=== PATIENT | male | born 1970 | race Caucasian/White ===

== ENCOUNTER 2019-01-01 23:32 | Inpatient (IN) | payer OTHER ==
[~2019-01-01] VITALS: Ht 177.8 cm; Wt 79.0 kg
[2019-01-02] MEDS ORDERED: ASPIRIN 81 MG TAB PO STA (01:21)
[2019-01-02] MEDS ORDERED: FUROSEMIDE 40 MG INJ IV STA (01:21)
--- NOTE | 2019-01-02 01:27 | ERD ---
ER Documentation Chief Complaint Chief Complaint hx chf; C/O LOWER EXTREMITY EDEMA, SOB AND PALPITATIONS X'S 2 DAYS HPI 48-year-old male with a history of systolic CHF with EF of 25%, hypertension, and hyperlipidemia presenting with complaints of progressively worsening lower extremity edema, shortness of breath, and palpitations. His symptoms have been progressively worsening over the past 2 weeks, worse in the past 2 days. He denies any chest pain with exertion but he does get very short of breath with any little exertion. He is urinating normally. He is taking all of his meds as prescribed. No fevers or chills. No cough or hemoptysis. ROS All systems reviewed and are negative except as per history of present illness. Medications Home Meds Reported Medications Metoprolol Succinate* (Toprol XL*) 25 Mg Tab.sr.24h, 25 MG PO DAILY 01/02/19 Furosemide* (Furosemide*) 40 Mg Tablet, 40 MG PO DAILY 01/02/19 Hydrocodone/Acetaminophen (Hydrocodone-Acetamin 10-325 mg) 1 Each Tablet, 1 TAB PO Q8H 01/02/19 Carvedilol* (Carvedilol*) 6.25 Mg Tablet, 6.25 MG PO BID 01/02/19 Benazepril Hcl* (Benazepril Hcl*) 20 Mg Tablet, 20 MG PO BID for 30 Days, #60 01/02/19 PMhx/Soc Hx Cardiac Disorders: Yes (chf, htn, hyperlipemia ) Hx Psychiatric Problems: No Hx Miscellaneous Medical Probl: No Hx Alcohol Use: Yes Hx Substance Use: No Hx Tobacco Use: Yes Smoking Status: Current every day smoker FmHx Family History: No diabetes Physical Exam Vitals Vital Signs Date Temp Pulse Resp B/P (MAP) Pulse Ox O2 O2 Flow FiO2 Time Delivery Rate 01/02/19 93 17 129/107 95 Nasal 2.0 04:08 (114) Cannula 01/02/19 106 20 153/122 95 Nasal 03:39 (132) Cannula 01/02/19 110 20 152/135 93 Nasal 2.0 03:27 (141) Cannula 01/02/19 Nasal 00:18 Cannula 01/02/19 98.2 106 20 158/122 95 Room Air 00:08 (134) 01/01/19 89.6 120 20 162/109 95 23:36 (126) Physical Exam Const: In mild respiratory distress but able to speak in full sentences Head: Atraumatic Eyes: Normal Conjunctiva ENT: Normal External Ears, Nose and Mouth. Neck: Full range of motion. No meningismus. JVD noted Resp: Tachypneic. Bibasilar crackles to the mid lungs bilaterally. No wheezing. Cardio: Tachycardic with regular. 2+ distal pulses rhythm, no murmurs Abd: Soft, non tender, non distended. Normal bowel sounds Skin: No petechiae or rashes Back: No midline or flank tenderness Ext: No cyanosis, 2+ pitting edema up to thighs bilaterally, symmetric Neur: Awake and alert Psych: Normal Mood and Affect Result Diagram: 01/02/19 0012 01/02/19 0014 Results 24 hrs Laboratory Tests Test 01/02/19 00:12 01/02/19 00:14 White Blood Count 8.5 10^3/ul Red Blood Count 4.90 10^6/ul Hemoglobin 13.4 g/dl Hematocrit 41.7 % Mean Corpuscular Volume 85.1 fl Mean Corpuscular Hemoglobin 27.3 pg Mean Corpuscular Hemoglobin Concent 32.1 g/dl Red Cell Distribution Width 16.2 % Platelet Count 207 10^3/UL Mean Platelet Volume 11.2 fl Immature Granulocytes % 0.400 % Neutrophils % 66.4 % Lymphocytes % 24.7 % Monocytes % 6.8 % Eosinophils % 1.2 % Basophils % 0.5 % Nucleated Red Blood Cells % 0.0 /100WBC Immature Granulocytes # 0.030 10^3/ul Neutrophils # 5.6 10^3/ul Lymphocytes # 2.1 10^3/ul Monocytes # 0.6 10^3/ul Eosinophils # 0.1 10^3/ul Basophils # 0.0 10^3/ul Nucleated Red Blood Cells # 0.0 10^3/ul Sodium Level 140 mmol/L Potassium Level 3.7 mmol/L Chloride Level 102 mmol/L Carbon Dioxide Level 25 mmol/L Anion Gap 13 Blood Urea Nitrogen 31 mg/dl Creatinine 1.89 mg/dl Est Glomerular Filtrat Rate mL/min 38 mL/min Glucose Level 194 mg/dl Calcium Level 9.3 mg/dl Total Bilirubin 1.1 mg/dl Direct Bilirubin 0.00 mg/dl Indirect Bilirubin 1.1 mg/dl Aspartate Amino Transf (AST/SGOT) 39 IU/L Alanine Aminotransferase (ALT/SGPT) 47 IU/L Alkaline Phosphatase 164 IU/L Troponin I 0.149 ng/ml B-Type Natriuretic Peptide 12981 PG/ML Total Protein 6.4 g/dl Albumin 3.7 g/dl Globulin 2.70 g/dl Albumin/Globulin Ratio 1.37 Current Medications Medications Dose Sig/Marisel Start Time Status Last (Trade) Ordered Route PRN Stop Time Admin Dose Reason Admin Aspirin 162 mg ONCE STAT 01/02/19 DC 01/02/19 (Aspirin) PO 01:21 01:35 01/02/19 01:23 Furosemide 40 mg ONCE STAT 01/02/19 DC 01/02/19 (Lasix) IV 01:21 01:35 01/02/19 01:23 Ondansetron 4 mg ER BRIDGE 01/02/19 HCl (Zofran PRN IV 03:30 Inj) NAUSEA/VOMITI 01/03/19 03:29 NG 650 mg ER BRIDGE 01/02/19 Acetaminophen PRN PO 03:30 (Tylenol .MILD PAIN 01/03/19 03:29 Tab) 1-3 OR TEMP Labetalol 10 mg ONCE ONCE 01/02/19 DC 01/02/19 HCl IV 04:00 03:44 (Labetalol) 01/02/19 04:01 1 tab ONCE ONCE 01/02/19 DC 01/02/19 Nitroglycerin SL 04:00 03:43 01/02/19 04:01 (Nitroglyceri n (Sl Tab) 0.4 Mg) Procedures/MDM EMERGENT LABS AND DIAGNOSTIC STUDIES: Lab Results above were reviewed and interpreted by me. CBC: no anemia or evidence of infection BMP: Elevated BUN and creatinine, consistent with renal insufficiency. No e/o clinically significant electrolyte abnormality severe acidosis, alkalosis, diabetic ketoacidosis Troponin elevated, concerning for myocardial ischemia BNP significantly elevated, likely due to heart failure exacerbation 12-lead EKG #1 was interpreted by Anabel Childers MD: Sinus tachycardia at 105 bpm with premature supraventricular complexes Right axis deviation Incomplete right bundle branch block Inferior ST depressions, concerning for ischemia. No STEMI. 12-lead EKG #2 was interpreted by Anabel Childesr MD: Sinus tachycardia at 109 bpm Right axis deviation Incomplete right bundle branch block Inferior ST depressions, concerning for ischemia. No STEMI. Radiology Results as interpreted by Radiology below were reviewed by Bienvenido Childers MD: Chest x-ray: Consistent with fluid overload Initial Nursing notes reviewed. Previous Medical Records requested via the Electronic Health Record. EMERGENCY DEPARTMENT COURSE / MEDICAL DECISION MAKING: Patient's heart failure symptoms are concerning for acute decompensation and will require inpatient workup and monitoring. Troponin was elevated, concerning for non-ST elevation OR. Aspirin was given. Lasix 40 mg IV given. Further w/u for ischemia, arrhythmia, PE or dissection will be deferred to the inpatient team. Critical Care Time: 40 minutes Treatments/Evaluations: Close monitoring and treatment of unstable vital signs, cardiorespiratory, and neurologic status, while maintaining tight balance of fluid, respiratory, and cardiac interventions. This time includes discussing the case with the patient and the patients family. This time does not include all procedures stated elsewhere in this record. This time also includes reviewing old records, labs and radiological studies. This time includes examining and re-examining the patient. Additionally, this time also includes arranging care with admitting and consulting physicians. Accepting Care Team: Current data and ongoing care discussed. Time: Time of admission Primary Provider: Dr. Alexandra with [facility] Diagnosis: Primary Impression: Acute exacerbation of CHF (congestive heart failure) Heart failure type: systolic Qualified Codes: I50.23 - Acute on chronic systolic (congestive) heart failure Additional Impressions: Non-STEMI (non-ST elevated myocardial infarction) Renal insufficiency Condition: Serious JETHRO CHILDERS MD Jan 02, 2019 01:27
[2019-01-02] MEDS ORDERED: CARV6.2579 PO (02:15)
[2019-01-02] MEDS ORDERED: METO-335 PO (02:15)
[2019-01-02] MEDS ORDERED: FURO40TA4 PO (02:15)
[2019-01-02] MEDS ORDERED: HYDR-3609 PO (02:15)
[2019-01-02] MEDS ORDERED: BENA20TA4 PO (02:15)
[2019-01-02] MEDS ORDERED: ONDANSETRON 4 MG INJ IV PRN (03:30)
[2019-01-02] MEDS ORDERED: ACETAMINOPHEN 325 MG TAB PO PRN (03:30)
[2019-01-02] MEDS ORDERED: LABETALOL HCL 20MG INJ IV ONE (04:00)
[2019-01-02] MEDS ORDERED: NITROGLYCERIN (SL) 0.4 MG TAB SL ONE (04:00)
[2019-01-02] MEDS ORDERED: ALPRAZOLAM 0.25 MG TAB PO PRN (09:00)
[2019-01-02] MEDS ORDERED: FUROSEMIDE 40 MG INJ IV ONE (09:00)
[2019-01-02] MEDS: FUROSEMIDE 40 MG INJ IV SCH ×2 (09:35→17:36)
[2019-01-02] MEDS ORDERED: ALBUTEROL 0.083% (NEB) 2.5 MG/3 ML AMP HHN STA (11:26)
[2019-01-02] MEDS ORDERED: BUMETANIDE 1 MG INJ IV SCH (12:00)
--- NOTE | 2019-01-02 13:27 | CONS ---
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 Unclear if medication compliance. He is currently on BiPAP and feeling better -Patient has been placed on a Bumex drip, continue as his renal function blood pressure permits -BiPAP and oxygen supplementation as needed -Troponins minimally elevated and trending down, continue aspirin therapy, statin therapy. Restart beta-stephanie. Nitro ointment and hydralazine -Check urine drug screen Consultation Date/Type/Reason Admit Date/Time Type of Consult Cardiology Reason for Consultation Shortness of breath and leg swelling Date/Time of Note DATE: 01/02/19 TIME: 13:21 Hx of Present Illness This is a 48-year-old male with past medical history of congestive heart failure who presents with progressive worsening shortness of breath, lower extremity swelling and fatigue over the past 2-3 weeks. Shortness of breath is with exertion as well as with lying down. Denies any chest pain. Does complain of lower extremity swelling for the past 2-3 weeks. Denies any fevers or chills. Does have a cough which is nonproductive. He tells me he does not see a doctor regularly but does take his medications. He does admit to methamphetamine and cocaine use but he thinks last time was 6 months ago. 12 point review of systems was performed with all pertinent positives and negatives mentioned above and all else is negative Past Medical History Medical History: congestive heart failure Home Meds Reported Medications Metoprolol Succinate* (Toprol XL*) 25 Mg Tab.sr.24h, 25 MG PO DAILY 01/02/19 Furosemide* (Furosemide*) 40 Mg Tablet, 40 MG PO DAILY 01/02/19 Hydrocodone/Acetaminophen (Hydrocodone-Acetamin 10-325 mg) 1 Each Tablet, 1 TAB PO Q8H 01/02/19 Carvedilol* (Carvedilol*) 6.25 Mg Tablet, 6.25 MG PO BID 01/02/19 Benazepril Hcl* (Benazepril Hcl*) 20 Mg Tablet, 20 MG PO BID for 30 Days, #60 01/02/19 Medications Current Medications Ondansetron HCl (Zofran Inj) 4 mg ER BRIDGE PRN IV NAUSEA/VOMITING; Start 01/02/19 at 03:30; Stop 01/03/19 at 03:29 Acetaminophen (Tylenol Tab) 650 mg ER BRIDGE PRN PO .MILD PAIN 1-3 OR TEMP; Start 01/02/19 at 03:30; Stop 01/03/19 at 03:29 Alprazolam (Xanax) 0.5 mg Q8H PRN PO anxiety Last administered on 01/02/19at 09:29; Admin Dose 0.5 MG; Start 01/02/19 at 09:00 Furosemide (Lasix) 40 mg BID DIURETICS IV Last administered on 01/02/19at 09:35; Admin Dose 40 MG; Start 01/02/19 at 09:30 Bumetanide 6 mg/ Dextrose 60 ml @ 10 mls/hr Q6H ONCE IVPB ; Start 01/02/19 at 14:00; Stop 01/02/19 at 19:59 Allergies: Coded Allergies: No Known Allergy (Unverified , 01/02/19) Past Surgical History Past Surgical Hx: other (Back surgery) Social History Alcohol Use: other (History of) Smoking Status: Current every day smoker Drug Use: other (Methamphetamine and cocaine use, patient claims approximately 6 months ago was last time) Exam/Review of Systems Vital Signs Vitals Vital Signs Date Temp Pulse Resp B/P (MAP) Pulse Ox O2 O2 Flow FiO2 Time Delivery Rate 01/02/19 103 100 30 11:35 01/02/19 22 141/115 Nasal 2.0 09:46 (124) Cannula 01/02/19 98.2 00:08 Intake and Output 01/01/19 01/01/19 01/02/19 1515:00 23:00 07:00 IntakeIntake Total 80 ml OutputOutput Total 1210 ml BalanceBalance -1130 ml Exam Constitutional: alert (Tired, on BiPAP, able to answer questions) Head: normocephalic Respiratory: other (Coarse breath sounds bilaterally, scattered crackles) Cardiovascular: regular rate and rhythm, systolic murmur (S1-S2 heard) Gastrointestinal: soft, non-tender, bowel sounds Extremities: edema Labs Result Diagram: 01/02/1990101/02/19901 Results 24hrs Laboratory Tests Test 01/02/19 00:12 01/02/19 00:14 01/02/19 09:02 White Blood Count 8.5 8.6 Red Blood Count 4.90 4.90 Hemoglobin 13.4 L 13.3 L Hematocrit 41.7 L 42.3 Mean Corpuscular Volume 85.1 86.3 Mean Corpuscular Hemoglobin 27.3 L 27.1 L Mean Corpuscular Hemoglobin Concent 32.1 31.4 L Red Cell Distribution Width 16.2 H 16.4 H Platelet Count 207 197 Mean Platelet Volume 11.2 H 11.2 H Immature Granulocytes % 0.400 0.500 H Neutrophils % 66.4 53.9 Lymphocytes % 24.7 34.1 Monocytes % 6.8 8.6 Eosinophils % 1.2 2.2 Basophils % 0.5 0.7 Nucleated Red Blood Cells % 0.0 0.0 Immature Granulocytes # 0.030 0.040 H Neutrophils # 5.6 4.6 Lymphocytes # 2.1 2.9 Monocytes # 0.6 0.7 Eosinophils # 0.1 0.2 Basophils # 0.0 0.1 Nucleated Red Blood Cells # 0.0 0.0 Sodium Level 140 142 Potassium Level 3.7 3.7 Chloride Level 102 103 Carbon Dioxide Level 25 27 Anion Gap 13 12 Blood Urea Nitrogen 31 H 30 H Creatinine 1.89 H 1.84 H Est Glomerular Filtrat Rate mL/min 38 L 39 L Glucose Level 194 98 # Calcium Level 9.3 9.3 Total Bilirubin 1.1 Direct Bilirubin 0.00 Indirect Bilirubin 1.1 Aspartate Amino Transf (AST/SGOT) 39 Alanine Aminotransferase (ALT/SGPT) 47 Alkaline Phosphatase 164 H Troponin I 0.149 *H 0.143 *H B-Type Natriuretic Peptide 86002 H Total Protein 6.4 Albumin 3.7 Globulin 2.70 Albumin/Globulin Ratio 1.37 Imaging Imaging ECG sinus tachycardia, QRS 140 ms with incomplete right bundle branch block, nonspecific ST abnormalities Medications Medications Current Medications Ondansetron HCl (Zofran Inj) 4 mg ER BRIDGE PRN IV NAUSEA/VOMITING; Start 01/02/19 at 03:30; Stop 01/03/19 at 03:29 Acetaminophen (Tylenol Tab) 650 mg ER BRIDGE PRN PO .MILD PAIN 1-3 OR TEMP; Start 01/02/19 at 03:30; Stop 4/13/19 at 03:29 Alprazolam (Xanax) 0.5 mg Q8H PRN PO anxiety Last administered on 01/02/19at 09:29; Admin Dose 0.5 MG; Start 01/02/19 at 09:00 Furosemide (Lasix) 40 mg BID DIURETICS IV Last administered on 01/02/19at 09:35; Admin Dose 40 MG; Start 01/02/19 at 09:30 Bumetanide 6 mg/ Dextrose 60 ml @ 10 mls/hr Q6H ONCE IVPB ; Start 01/02/19 at 14:00; Stop 01/02/19 at 19:59 Donald Gonzales DO Jan 02, 2019 13:27
[2019-01-02] MEDS ORDERED: BUMETANIDE IVPB ONE (14:00)
[2019-01-02] MEDS ORDERED: DEXTROSE 5% IVPB ONE (14:00)
--- NOTE | 2019-01-02 14:41 | HP ---
DATE OF ADMISSION: 01/01/2019 CHIEF COMPLAINT: Shortness of breath. HISTORY OF PRESENT ILLNESS: A 48-year-old male with history of systolic congestive heart failure and baseline ejection fraction of 25% as well as hypertension and hyperlipidemia, presented to emergency room with complaints of shortness of breath and dyspnea on exertion. His symptoms have progressivel y getting worse. He denies any chest pain. No nausea, vomiting or diaphoresis. The patient was rod gnosed with CHF in 2013. He has a history of cocaine and methamphetamine abuse. Initial evaluation revealed evidence of congestive heart failure exacerbation. Chest x-ray showed pu lmonary edema. BNP was elevated to 22,000. MEDICATIONS PRIOR TO ADMISSION: 1. Metoprolol. 2. Lasix. 3. Coreg. 4. Benazepril. 5. [place]. SOCIAL HISTORY: The patient denies any illicit drug use at this time. PHYSICAL EXAMINATION: GENERAL: Well-developed, well-nourished male who is in mild respiratory distress. VITAL SIGNS: Stable. He is afebrile. HEENT: Extraocular muscles are intact. Pupils are equal and reactive to light bilaterally. Sclerae are anicteric. Oropharynx is clear and moist. NECK: Supple. No JVD, no carotid bruits. LUNGS: Crackles at the bases. CARDIAC: Regular rate and rhythm. No murmurs, rubs or gallops. ABDOMEN: Soft, nontender, nondistended, normoactive bowel sounds. EXTREMITIES: A 3+ pitting edema. NEUROLOGICAL: Nonfocal. LABORATORY DATA: BUN of 30, creatinine of 1.84. CBC is within normal limits. ASSESSMENT: 1. A 48-year-old male presenting with acute systolic congestive heart failure exacerbation. 2. History of cardiomyopathy with EF of 25%. 3. Hypertension. 4. Hyperlipidemia. 5. History of illicit drug abuse. 6. Stage III chronic kidney disease. PLAN: 1. Place in tele observation. 2. IV Bumex drip. 3. Cardiology consultation. 4. Resume home medications. Dictated By: CYRUS WILLMAS/CYNTHIA Conf#: [id number] DID#: [id number] CC: JETHRO HOOPER MD;*EndCC*
[2019-01-02] MEDS: NITROGLYCERIN 2% 1 GM OINT PKT TD SCH ×2 (15:06→21:15)
[2019-01-02 17:32] VITALS: Ht 177.8 cm; Wt 79.0 kg
[2019-01-02 17:41] VITALS: PULSE 109
[2019-01-02 18:24] VITALS: BP 182/101; PULSE 78; RESP 20
[2019-01-02 20:00] VITALS: BP 157/105; PULSE 108; PULSE 99; RESP 20
[2019-01-02] MEDS: ATORVASTATIN 20 MG TAB PO SCH (21:15)
[2019-01-02 21:34] VITALS: PULSE 80
[2019-01-02] MEDS ORDERED: BUMETANIDE 6 MG in DEXTROSE 5% 36 ML IV ONE (22:30)
[2019-01-02 23:55] VITALS: BP 155/103; PULSE 98; RESP 20
[2019-01-03] VITALS (11 sets, daily range): BP systolic 128–148; BP diastolic 98–116; PULSE 50–105; RESP 19–20
[2019-01-03] MEDS: NITROGLYCERIN 2% 1 GM OINT PKT TD SCH (06:27)
[2019-01-03] MEDS: HYDROCODONE/APAP (5/325) TAB PO PRN ×2 (06:27→18:08)
[2019-01-03] MEDS: FUROSEMIDE 40 MG INJ IV SCH (07:24)
[2019-01-03] MEDS: ASPIRIN 81 MG TAB PO SCH (08:18)
--- NOTE | 2019-01-03 09:13 | CONS ---
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 Unclear if medication compliance. He is currently on BiPAP and feeling better -Patient is s/p Bumex drip, now on iv lasix -BiPAP and oxygen supplementation as needed -Troponins minimally elevated and trending down, continue aspirin therapy, statin therapy. Restart beta-stephanie. Nitro ointment and hydralazine - trops + due to CHF exacerbation/CM Consultation Date/Type/Reason Admit Date/Time Jan 02, 2019 at 03:13 Initial Consult Date Type of Consult Cardiology Date/Time of Note DATE: 01/03/19 TIME: 09:11 24 HR Interval Summary Free Text/Dictation The patient imporiving Exam/Review of Systems Vital Signs Vitals Vital Signs Date Temp Pulse Resp B/P (MAP) Pulse Ox O2 O2 Flow FiO2 Time Delivery Rate 01/03/19 102 08:04 01/03/19 98.1 20 135/101 97 07:40 (112) 01/03/19 2.0 03:03 01/02/19 30 21:34 01/02/19 Nasal 21:00 Cannula Intake and Output 01/02/19 01/02/19 01/03/19 1515:00 23:00 07:00 IntakeIntake Total 60 ml 660 ml OutputOutput Total 4600 ml BalanceBalance 60 ml -3940 ml Labs Result Diagram: 01/03/19 0553 01/03/19 0553 Results 24hrs Laboratory Tests Test 01/03/19 05:53 White Blood Count 9.0 Red Blood Count 5.51 Hemoglobin 14.7 Hematocrit 46.3 Mean Corpuscular Volume 84.0 Mean Corpuscular Hemoglobin 26.7 L Mean Corpuscular Hemoglobin Concent 31.7 L Red Cell Distribution Width 16.1 H Platelet Count 223 Mean Platelet Volume 11.4 H Immature Granulocytes % 0.300 Neutrophils % 52.1 Lymphocytes % 34.0 Monocytes % 9.9 Eosinophils % 2.9 Basophils % 0.8 Nucleated Red Blood Cells % 0.0 Immature Granulocytes # 0.030 Neutrophils # 4.7 Lymphocytes # 3.1 H Monocytes # 0.9 Eosinophils # 0.3 Basophils # 0.1 Nucleated Red Blood Cells # 0.0 Sodium Level 142 Potassium Level 3.5 Chloride Level 97 Carbon Dioxide Level 35 H Anion Gap 10 Blood Urea Nitrogen 38 H Creatinine 1.82 H Est Glomerular Filtrat Rate mL/min 40 L Glucose Level 94 Calcium Level 9.7 Magnesium Level 1.8 Triglycerides Level 82 Cholesterol Level 119 LDL Cholesterol, Calculated 44 HDL Cholesterol 59 Cholesterol/HDL Ratio 2.0 Medications Medications Current Medications Alprazolam (Xanax) 0.5 mg Q8H PRN PO anxiety Last administered on 01/02/19 09:29; Admin Dose 0.5 MG; Start 01/02/19 at 09:00 Furosemide (Lasix) 40 mg BID DIURETICS IV Last administered on 01/03/19 0 7:24; Admin Dose 40 MG; Start 01/02/19 at 09:30 Aspirin (Aspirin) 81 mg DAILY PO Last administered on 01/03/19 08:18; Admin Dose 81 MG; Start 01/03/19 at 09:00 Nitroglycerin (Nitroglycerin 2% Oint) 0.5 inch Q8 TD Last administered on 01/03/19 06:27; Admin Dose 0.5 INCH; Start 01/02/19 at 14:00; Stop 01/03/19 at 13:59 Carvedilol (Coreg) 3.125 mg BID PO ; Start 01/02/19 at 21:00 Hydralazine HCl (Apresoline) 10 mg BID PO Last administered on 01/03/19 08:18; Admin Dose 10 MG; Start 01/02/19 at 21:00 Atorvastatin Calcium (Lipitor) 20 mg HS PO Last administered on 01/02/19at 21:15; Admin Dose 20 MG; Start 01/02/19 at 21:00 Acetaminophen/ Hydrocodone Bitart ([place] (5/325)) 1 tab Q4H PRN PO MODERATE PAIN LEVEL 4-6 Last administered on 01/03/19 06:27; Admin Dose 1 TAB; Start 01/03/19 at 06:00 TED ESTRELLA MD Jan 03, 2019 09:13
--- NOTE | 2019-01-03 10:50 | PN ---
Date/Time of Note Date/Time of Note DATE: 01/03/19 TIME: 10:48 Subjective Feels better. No shortness of breath. No chest pain. Objective Vitals Vital Signs Date Temp Pulse Resp B/P (MAP) Pulse Ox O2 O2 Flow FiO2 Time Delivery Rate 01/03/19 102 08:04 01/03/19 98.1 20 135/101 97 07:40 (112) 01/03/19 2.0 03:03 01/02/19 30 21:34 01/02/19 Nasal 21:00 Cannula Intake and Output 01/02/19 01/02/19 01/03/19 1515:00 23:00 07:00 IntakeIntake Total 60 ml 660 ml OutputOutput Total 4600 ml BalanceBalance 60 ml -3940 ml Neck supple Lungs with bibasilar crackles Cardiac regular rate and rhythm Abdomen soft nontender nondistended normoactive bowel sounds 3+ pitting edema Nonfocal Results Result Diagram: 01/03/19 0553 01/03/19 0553 Medications Medications Current Medications Alprazolam (Xanax) 0.5 mg Q8H PRN PO anxiety Last administered on 01/02/19at 09: 29; Admin Dose 0.5 MG; Start 01/02/19 at 09:00 Furosemide (Lasix) 40 mg BID DIURETICS IV Last administered on 01/03/19at 07:24; Admin Dose 40 MG; Start 01/02/19 at 09:30 Aspirin (Aspirin) 81 mg DAILY PO Last administered on 01/03/19at 08:18; Admin Dose 81 MG; Start 01/03/19 at 09:00 Nitroglycerin (Nitroglycerin 2% Oint) 0.5 inch Q8 TD Last administered on 01/03/19at 06:27; Admin Dose 0.5 INCH; Start 01/02/19 at 14:00; Stop 01/03/19 at 13:59 Carvedilol (Coreg) 3.125 mg BID PO ; Start 01/02/19 at 21:00 Hydralazine HCl (Apresoline) 10 mg BID PO Last administered on 01/03/19at 08:18; Admin Dose 10 MG; Start 01/02/19 at 21:00 Atorvastatin Calcium (Lipitor) 20 mg HS PO Last administered on 01/02/19at 21:15; Admin Dose 20 MG; Start 01/02/19 at 21:00 Acetaminophen/ Hydrocodone Bitart ([place] (5/325)) 1 tab Q4H PRN PO MODERATE PAIN LEVEL 4-6 Last administered on 01/03/19at 06:27; Admin Dose 1 TAB; Start 01/03/19 at 06:00 Bumetanide 6 mg/ Dextrose 60 ml @ 10 mls/hr Q6H ONCE IV ; Start 01/03/19 at 11:00; Stop 01/03/19 at 16:59 VTE Prophylaxis Risk score (from Ns)>0 risk: 1 SCD applied (from Nsg): No SCD contraindication: low risk/ambulating Lines/Catheters IV Catheter Type: Saline Lock Rosenthal in Place: No Assessment/Plan Assessment/Plan Acute systolic CHF exacerbation Severe cardiomyopathy History of polysubstance abuse Stage III chronic kidney disease Resume Bumex drip Monitor renal function Cardiology follow-up CYRUS RICE MD Jan 03, 2019 10:50
[2019-01-03] MEDS ORDERED: BUMETANIDE 6 MG in DEXTROSE 5% 36 ML IV ONE (11:00)
[2019-01-03] MEDS: ATORVASTATIN 20 MG TAB PO SCH (20:45)
[2019-01-04] VITALS (8 sets, daily range): BP systolic 141–160; BP diastolic 103–112; PULSE 54–113; RESP 18–20
[2019-01-04] MEDS: ASPIRIN 81 MG TAB PO SCH (08:06)
[2019-01-04] MEDS ORDERED: POTASSIUM CHLORIDE (SR) 20 MEQ TAB PO SCH (10:00)
[2019-01-04] MEDS ORDERED: BUME1TAB PO (10:26)
[2019-01-04] MEDS ORDERED: POTA10TA37 PO (10:26)
[2019-01-04] MEDS ORDERED: METOPROLOL (XL) 25 MG TAB PO SCH (10:30)
[2019-01-04] MEDS ORDERED: LISINOPRIL 10 MG TAB PO SCH (10:30)
--- NOTE | 2019-01-04 10:30 | PDOCDIS ---
Discharge Instructions CONDITION [id number] Patient Condition: [id number] Good HOME CARE INSTRUCTIONS: [id number] Diet Instructions: Fvarp5e day ACTIVITY: [id number] Activity Restrictions: [id number] No Restrictions FOLLOW UP/APPOINTMENTS Follow-up Plan pcp [address] Gonzales 1 week CYRUS RICE MD Jan 04, 2019 10:30
--- NOTE | 2019-01-04 10:47 | DS ---
DATE OF ADMISSION: 01/02/2019 DATE OF DISCHARGE: 01/04/2019 DISCHARGE DIAGNOSES: 1. A 48-year-old male with acute systolic congestive heart failure exacerbation. 2. Severe cardiomyopathy with baseline ejection fraction of 25%. 3. Stage III chronic kidney disease. 4. History of polysubstance abuse. HOSPITAL COURSE: I saw 48-year-old male with known history of severe cardiomyopathy and chronic jody estive heart failure, presented to emergency room with complaint of shortness of breath, dyspnea on e xertion, bilateral lower extremity edema. The patient was diagnosed with acute congestive heart fail ure exacerbation. He was seen in consultation by Dr. Gonzales. The patient received IV Bumex drip for 3 days. His shortness of breath was resolved. About 10 liters of fluid was removed. The patient i s in stable condition for discharge. He was switched from Lasix to Bumex. I asked him to adhere to a low sodium diet and fluid restriction of 1200 mL daily. MEDICATIONS ON DISCHARGE: 1. Bumex 1 mg p.o. b.i.d. 2. K-Dur 10 mEq p.o. daily. 3. Benazepril 20 mg b.i.d. 4. Toprol-XL 25 mg daily. PLAN: 1. Follow-up with PCP in 1 week. 2. Follow up with saw a salesperson stereo equipment, Dr. Gonzales, in 1 week. Dictated By: CYRUS WILLAMS/NTS Conf#: [id number] DID#: [id number] CC: KATHARINA MALDONADO MD;*End*
--- NOTE | 2019-01-04 10:56 | CONS ---
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 Unclear if medication compliance. He is currently feeling better after several days of Bumex - start LIDYA-I replace potassium -pt refusing coreg replace with toprol xl consider outpatient entresto Exam/Review of Systems Vital Signs Vitals Vital Signs Date Temp Pulse Resp B/P (MAP) Pulse Ox O2 O2 Flow FiO2 Time Delivery Rate 01/04/19 89 08:05 01/04/19 Nasal 2.0 07:40 Cannula 01/04/19 97.4 20 160/106 94 07:22 (124) 01/04/19 27 02:05 Intake and Output 01/03/19 01/03/19 01/04/19 1414:59 22:59 06:59 IntakeIntake Total 1300 ml 900 ml OutputOutput Total 4000 ml 500 ml BalanceBalance -2700 ml 400 ml Exam Constitutional: alert, oriented Respiratory: clear to auscultation Cardiovascular: regular rate and rhythm Extremities: No edema Labs Result Diagram: 01/03/19 0553 01/04/19 0646 Results 24hrs Laboratory Tests Test 01/04/19 06:46 Sodium Level 140 Potassium Level 3.0 L Chloride Level 96 L Carbon Dioxide Level 32 H Anion Gap 12 Blood Urea Nitrogen 37 H Creatinine 1.53 H Est Glomerular Filtrat Rate mL/min 49 L Glucose Level 92 Calcium Level 9.2 Medications Medications Current Medications Alprazolam (Xanax) 0.5 mg Q8H PRN PO anxiety Last administered on 01/02/19at 09:29; Admin Dose 0.5 MG; Start 01/02/19 at 09:00 Aspirin (Aspirin) 81 mg DAILY PO Last administered on 01/04/19at 08:06; Admin Dose 81 MG; Start 01/03/19 at 09:00 Hydralazine HCl (Apresoline) 10 mg BID PO Last administered on 01/04/19at 08:06; Admin Dose 10 MG; Start 01/02/19 at 21:00 Atorvastatin Calcium (Lipitor) 20 mg HS PO Last administered on 01/03/19at 20:45; Admin Dose 20 MG; Start 01/02/19 at 21:00 Acetaminophen/ Hydrocodone Bitart ([place] (5/325)) 1 tab Q4H PRN PO MODERATE PAIN LEVEL 4-6 Last administered on 01/03/19at 18:08; Admin Dose 1 TAB; Start 01/03/19 at 06:00 Bumetanide 12 mg/ Dextrose/Water 120 ml @ 10 mls/hr Q12H ONCE IV ; Start 01/04/19 at 11:00; Stop 01/04/19 at 22:59 Potassium Chloride (Klor-Con 20) 40 meq BID PO Last administered on 01/04/19at 10:13; Admin Dose 40 MEQ; Start 01/04/19 at 10:00; Stop 01/04/19 at 21:01 Lisinopril (Zestril) 10 mg DAILY PO ; Start 01/04/19 at 10:30 Metoprolol Succinate (Toprol Xl) 25 mg DAILY PO ; Start 01/04/19 at 10:30 TYLER GRANADO MD Jan 04, 2019 10:56
[2019-01-04] MEDS ORDERED: BUMETANIDE 12 MG in DEXTROSE 5% 72 ML IV ONE (11:00)
--- NOTE | 2019-01-05 09:25 | RADRPT ---
Echocardiogram Report Patient Name: DONALD ALBERTOPatient ID: [id number] : 1970 (48y 8m)Study Date: 01/02/2019 8:58:21 AM Gender: MAccession #: [id number] Tech: Robert Gerber RDCS Location: [facility] Ref.Physician: KATHARINA MALDONADO Height(Cm): BSA: Weight(Kg): Quality: AdequateAccount #: Procedures: Echocardiographic Report: Transthoracic echocardiogram with complete 2D, M-Mode, and doppler examination. Indications: Congestive Heart Failure. Measurements: 2D/M Mode Doppler Measurement Value Normal Range Measurement Value Normal Range LVIDd 2D 6.8 [ 4.2 - 5.8 ] cm AV Peak Gaetano 0.8 [ 100.0 - 170.0 ] cm/sec LVIDs 2D 6.6 [ 2.5 - 4.0 ] cm AV Peak PG 2.0 [ 2.0 - 9.0 ] mmHg LVPWd 2D 1.2 [ 0.6 - 1.0 ] cm LVOT Peak Gaetano 0.4 [ 70.0 - 110.0 ] cm/sec IVSd 2D 1.1 [ 0.6 - 1.0 ] cm LVOT Peak PG 1.0 [ 2.0 - 6.0 ] mmHg AoR Diam 2D 3.9 [ 2.6 - 3.4 ] cm Lat E` Gaetano 0.0 [ 10.0 - 15.0 ] cm/sec EDV 2D 237.0 [ 62.0 - 150.0 ] ml TR Peak Gaetano 3.4 [ 100.0 - 280.0 ] cm/sec ESV 2D 226.0 [ 21.0 - 61.0 ] ml TR Peak PG 46.0 mmHg EF 2D 4.6 [ 52.0 - 72.0 ] percent RVSP 61.0 [ 10.0 - 36.0 ] mmHg LA Dimen 2D 5.1 [ 3.0 - 4.0 ] cm RA Pressure 15.0 mmHg Findings: Left Ventricle: Mild concentric left ventricular hypertrophy. Moderate enlargement of left ventricle cavity. Severe global left ventricular systolic dysfunction. Ejection fraction is visually estimated at 20 %. Tissue Doppler/Mitral Doppler indices are consistent with restrictive physiology with markedly elevated left atrial pressure (Stage III-IV diastolic dysfunction). Right Ventricle: Normal right ventricular size. Mild right ventricular hypokinesis. Left Atrium: There is moderate enlargement of left atrium. Right Atrium: There is severe enlargement of right atrium. Mitral Valve: Mitral valve leaflets appear mildly thickened. Mild mitral annular calcification. Mild to moderate mitral valve regurgitation. Aortic Valve: No significant aortic stenosis or insufficiency. Aortic cusps appear moderately calcified. Tricuspid Valve: Normal appearance of the tricuspid valve. Estimated peak PA systolic pressure 61 mmHg. There is mild to moderate tricuspid regurgitation. Pulmonic Valve: Pulmonic valve not well visualized. There is trace pulmonic regurgitation. Pericardium: Normal pericardium with no significant pericardial effusion. Aorta: Normal aortic root. IVC: Dilated IVC without respiratory collapse consistent with elevated right atrial pressure. Conclusions: Mild concentric left ventricular hypertrophy. Moderate enlargement of left ventricle cavity. Severe global left ventricular systolic dysfunction. Ejection fraction is visually estimated at 20 %. Tissue Doppler/Mitral Doppler indices are consistent with restrictive physiology with markedly elevated left atrial pressure (Stage III-IV diastolic dysfunction). Normal right ventricular size. Mild right ventricular hypokinesis. There is moderate enlargement of left atrium. There is severe enlargement of right atrium. Mild to moderate mitral valve regurgitation. No significant aortic stenosis or insufficiency. Estimated peak PA systolic pressure 61 mmHg. There is mild to moderate tricuspid regurgitation. Normal pericardium with no significant pericardial effusion. Electronically Signed By: Donald Gonzales 2019-01-02 13:17:21 PDT
== END 2019-01-04 18:51 | disposition home or self-care (01) | DRG 293 ==
LOC: E/R 23:32 → TEL 01-02 03:13
PROVIDERS: ADMIT Internal Medicine; ATTEND Internal Medicine
DX: I11.0 Hypertensive heart disease with heart failure (principal); I42.9 Cardiomyopathy, unspecified; I13.0 Hypertensive heart and chronic kidney disease with heart failure and stage 1 through stage 4 chronic kidney disease, or unspecified chronic kidney disease; N18.3 Chronic kidney disease, stage 3 (moderate); F15.90 Other stimulant use, unspecified, uncomplicated; F14.90 Cocaine use, unspecified, uncomplicated
CPT/HCPCS: 36415; 71045; 80048; 80053; 80061; 80307; 83735; 83880; 84484; 85025; 93005; 93306; 94660; 94664; 96374; J1940

== ENCOUNTER 2019-02-01 23:47 | Inpatient (IN) | payer OTHER ==
[~2019-02-01] VITALS: Ht 177.8 cm; Wt 85.5 kg
[~2019-02-01 23:47] MED LIST: BENA20TA4 PO; BUME1TAB PO; METO-335 PO; POTA10TA37 PO
[2019-02-02] VITALS (10 sets, daily range): BP systolic 109–149; BP diastolic 81–109; PULSE 82–100; RESP 20; Ht 177.8 cm; Wt 85.5 kg
[2019-02-02] MEDS ORDERED: ASPIRIN 325 MG TAB PO ONE (03:00)
[2019-02-02] MEDS ORDERED: BUMETANIDE 1 MG INJ IV ONE (03:00)
[2019-02-02] MEDS ORDERED: ACETAMINOPHEN 325 MG TAB PO PRN (04:30)
[2019-02-02] MEDS ORDERED: morphine 2 MG INJ IV PRN (04:30)
[2019-02-02] MEDS ORDERED: ONDANSETRON 4 MG INJ IV PRN (04:30)
[2019-02-02] MEDS ORDERED: BUMETANIDE 1 MG INJ IV SCH (04:30)
--- NOTE | 2019-02-02 06:41 | ERD ---
ER Documentation Chief Complaint Chief Complaint HX CHF; BLEs SWELLING X1WK; SOB X3DAYS HPI This is a 48-year-old male with a history of chronic CHF, who presents with worsening shortness of breath for the last 3 days, that is described as exertional. Patient had a recent admission about a month ago, and his shortness of breath have been controlled, and he has been discharged on a diuretic and medication regimen. He states that he has been compliant with this, however his legs have continued to swell, and his symptoms have been worsening. He denies syncope, no fever. ROS All systems reviewed and are negative except as per history of present illness. Medications Home Meds Active Scripts Potassium Chloride* (K-Dur*) 10 Meq Tab.prt.sr, 10 MEQ PO DAILY for 30 Days, TAB 3 Refills Prov:CYRUS RICE MD 01/04/19 Bumetanide* (Bumetanide*) 1 Mg Tablet, 1 MG PO BID for 30 Days, #60 TAB 3 Refills Prov:CYRUS RICE MD 01/04/19 Reported Medications Metoprolol Succinate* (Toprol XL*) 25 Mg Tab.sr.24h, 25 MG PO DAILY 01/02/19 Benazepril Hcl* (Benazepril Hcl*) 20 Mg Tablet, 20 MG PO BID for 30 Days, #60 01/02/19 Allergies Allergies: Coded Allergies: No Known Allergy (Unverified , 01/02/19) PMhx/Soc History of Surgery: Yes (BACK SURG 1999, SINUS SURG 2001) Anesthesia Reaction: No Hx Neurological Disorder: Yes (TIA 2 YRS AGO) Hx Respiratory Disorders: No Hx Cardiac Disorders: Yes (CHF 6YRS AGO, HTN, ARYTHMIA) Hx Psychiatric Problems: No Hx Miscellaneous Medical Probl: Yes (INGUINAL HERNIA) Hx Alcohol Use: No Hx Substance Use: Yes (PREVIOUS) Hx Tobacco Use: No (3 YRS AGO) Smoking Status: Former smoker Physical Exam Vitals Vital Signs Date Temp Pulse Resp B/P (MAP) Pulse Ox O2 O2 Flow FiO2 Time Delivery Rate 02/01/19 98.3 110 19 163/97 100 23:53 (119) Physical Exam Const: No acute distress Head: Atraumatic Eyes: Normal Conjunctiva ENT: Normal External Ears, Nose and Mouth. Neck: Full range of motion. No meningismus. Resp: Trace rales, no extra Tory wheezing Cardio: JVD, regular rate and rhythm, no murmurs Abd: Soft, non tender, non distended. Normal bowel sounds Skin: No petechiae or rashes Back: No midline or flank tenderness Ext: No cyanosis, there is 2+ pitting edema bilateral Neur: Awake and alert Psych: Normal Mood and Affect Result Diagram: 02/02/19 0149 02/02/19 0149 Results 24 hrs Laboratory Tests Test 02/02/19 01:49 White Blood Count 8.4 10^3/ul Red Blood Count 4.94 10^6/ul Hemoglobin 13.4 g/dl Hematocrit 41.9 % Mean Corpuscular Volume 84.8 fl Mean Corpuscular Hemoglobin 27.1 pg Mean Corpuscular Hemoglobin Concent 32.0 g/dl Red Cell Distribution Width 16.3 % Platelet Count 196 10^3/UL Mean Platelet Volume 10.8 fl Immature Granulocytes % 0.100 % Neutrophils % 55.2 % Lymphocytes % 31.5 % Monocytes % 9.6 % Eosinophils % 3.1 % Basophils % 0.5 % Nucleated Red Blood Cells % 0.0 /100WBC Immature Granulocytes # 0.010 10^3/ul Neutrophils # 4.6 10^3/ul Lymphocytes # 2.7 10^3/ul Monocytes # 0.8 10^3/ul Eosinophils # 0.3 10^3/ul Basophils # 0.0 10^3/ul Nucleated Red Blood Cells # 0.0 10^3/ul Prothrombin Time 15.4 Sec Prothrombin Time Ratio 1.2 INR International Normalized Ratio 1.21 Activated Partial Thromboplast Time 26.1 Sec Sodium Level 140 mmol/L Potassium Level 4.4 mmol/L Chloride Level 102 mmol/L Carbon Dioxide Level 30 mmol/L Anion Gap 8 Blood Urea Nitrogen 32 mg/dl Creatinine 1.72 mg/dl Est Glomerular Filtrat Rate mL/min 42 mL/min Glucose Level 101 mg/dl Calcium Level 9.2 mg/dl Total Bilirubin 0.7 mg/dl Direct Bilirubin 0.00 mg/dl Indirect Bilirubin 0.7 mg/dl Aspartate Amino Transf (AST/SGOT) 35 IU/L Alanine Aminotransferase (ALT/SGPT) 43 IU/L Alkaline Phosphatase 154 IU/L Troponin I 0.127 ng/ml B-Type Natriuretic Peptide 88195 PG/ML Total Protein 6.5 g/dl Albumin 3.6 g/dl Globulin 2.90 g/dl Albumin/Globulin Ratio 1.24 Current Medications Medications Dose Sig/Marisel Start Time Status Last (Trade) Ordered Route PRN Stop Time Admin Dose Reason Admin Aspirin 325 mg ONCE ONCE 02/02/19 DC 02/02/19 (Aspirin) PO 03:00 03:44 02/02/19 03:01 Bumetanide 1 mg NOW ONCE 02/02/19 DC 02/02/19 (Bumex) IV 03:00 03:44 02/02/19 03:01 Procedures/MDM 48-year-old male presents for evaluation of shortness of breath. His clinical picture is concerning for worsening CHF, despite being compliant with his medications, and having been discharged on a cardiac regimen. Patient will require admission for observation and titration of his medications. His troponin was 0.12, this does appear to be lower than his prior troponin at discharge. Patient does not have chest pain. Accepting Care Team: Current data and ongoing care discussed. Primary: Brenda Consulting: none Outstanding Data: none EKG: Rate/Rhythm: Normal Sinus Rhythm QRS, ST, T-waves: No changes consistent w/ acute ischemia Impression: No evidence of ischemia or arrhythmia Departure Diagnosis: Primary Impression: Swelling Additional Impressions: CHF (congestive heart failure) Heart failure type: systolic Heart failure chronicity: unspecified Qualified Codes: I50.20 - Unspecified systolic (congestive) heart failure Shortness of breath Condition: TEVIN Peraza MD February 02, 2019 06:41
[2019-02-02] MEDS: LOSARTAN 50 MG TAB PO SCH (06:44)
[2019-02-02] MEDS ORDERED: BUMETANIDE 2 MG in DEXTROSE 5% 17 ML IV SCH (09:00)
[2019-02-02] MEDS: METOPROLOL (XL) 50 MG TAB PO SCH (09:49)
[2019-02-02] MEDS: ASPIRIN (EC) 81 MG TAB PO SCH (09:49)
[2019-02-02] MEDS: ATORVASTATIN 20 MG TAB PO SCH (09:49)
[2019-02-02] MEDS ORDERED: BUMETANIDE 25 MG in DEXTROSE 5% 150 ML IV SCH (12:00)
--- NOTE | 2019-02-02 12:23 | HP ---
DATE OF ADMISSION: 02/02/2019 CHIEF COMPLAINT: Shortness of breath and lower extremity swelling. HISTORY OF PRESENT ILLNESS: A 48-year-old male with severe cardiomyopathy, returned to emergency fidel with complaint of shortness of breath, dyspnea on exertion, and recurrent bilateral lower extremity swelling x1 week. The patient was admitted one month prior to admission and underwent diuresis. He reports that despite continuing medications and fluid restrictions, his congestive heart failure got worse. The patient has history of polysubstance abuse. Initial evaluation revealed congestive hear t failure exacerbation. Room air saturation was, however, 99%. BNP was elevated to 13,200. Troponi ns were 0.127 and 0.113. The patient denied any chest pain. PAST MEDICAL HISTORY: 1. Cardiomyopathy. 2. Hypertension. 3. History of polysubstance abuse. MEDICATIONS PRIOR TO ADMISSION: 1. Benazepril 20 mg p.o. b.i.d. 2. Toprol-XL 25 mg daily. 3. Bumex 1 mg b.i.d. 4. Potassium chloride 10 mEq daily. PHYSICAL EXAMINATION: GENERAL: Well-developed, well-nourished male who is in no apparent distress. VITAL SIGNS: Stable. He is afebrile. HEENT: Extraocular muscles are intact. Pupils are equal and reactive to light bilaterally. Sclerae are anicteric. Oropharynx is clear and moist. NECK: Supple, no JVD, no carotid bruits. LUNGS: Mild crackles at the bases and diffuse rhonchi. CARDIAC: Regular rate and rhythm. ABDOMEN: Soft, nontender, nondistended, normoactive bowel sounds. EXTREMITIES: 3+ pitting edema. NEUROLOGICAL: Nonfocal. IMAGING: Chest x-ray shows cardiomegaly, mild pulmonary vascular congestion, shallow inspiration wit h minimal bibasilar subsegmental atelectasis. ASSESSMENT: 1. A 48-year-old male with acute systolic congestive heart failure exacerbation. 2. Severe cardiomyopathy. 3. Hypertension. 4. History of polysubstance abuse. PLAN: 1. Place in tele observation. 2. Continue IV Bumex drip for the next 24 hours. 3. Monitor renal function. 4. Cardiology consultation was requested. Dictated By: CYRUS WILLAMS/CYNTHIA Conf#: [id number] DID#: [id number] CC: SETH GIBSON DO; BRANDYN AREVALO MD;*[facility]*
[2019-02-02] MEDS: POTASSIUM CHLORIDE (SR) 20 MEQ TAB PO SCH ×2 (12:50→20:40)
--- NOTE | 2019-02-02 19:17 | CONS ---
Assessment/Plan Cardiology NYHA: II Heart Failure Type: Acute on Chronic Heart Failure Type: Both Assessment/Plan Hospital Course (Demo Recall) Acute Decompensated Systolic CHF CM EF 20% MR/TR Hx Meth use CHATA -pt with acute CHF decompensation -was placed on Bumex drip, cont as renal fxn and BP isidro -Cont bb, marcel-I -maintain k>40 and Mg>2.0 Pt requesting nutrition guidance, will place consult Consultation Date/Type/Reason Admit Date/Time February 02, 2019 at 04:25 Type of Consult Cardiology Reason for Consultation edema and sob Date/Time of Note DATE: 02/02/19 TIME: 19:10 Hx of Present Illness 48 y/o M hx Systolic CHF who presents with increased LE edema, sob and palpitations. Sx progressing over the past 2 weeks. He tells me he is compliant with meds, but does not know about a low Na diet. He also c/o occasional palpitations. No dizziness,cp. Last meth use was about 1 month ago. 12 point ROS performed with all pertinent +/- mentioned above, and all else is neg Past Medical History Medical History: congestive heart failure Home Meds Active Scripts Potassium Chloride* (K-Dur*) 10 Meq Tab.prt.sr, 10 MEQ PO DAILY for 30 Days, TAB 3 Refills Prov:CYRUS RICE MD 01/04/19 Bumetanide* (Bumetanide*) 1 Mg Tablet, 1 MG PO BID for 30 Days, #60 TAB 3 Refills Prov:CYRUS RICE MD 01/04/19 Reported Medications Metoprolol Succinate* (Toprol XL*) 25 Mg Tab.sr.24h, 25 MG PO DAILY 01/02/19 Benazepril Hcl* (Benazepril Hcl*) 20 Mg Tablet, 20 MG PO BID for 30 Days, #60 01/02/19 Medications Current Medications Losartan Potassium (Cozaar) 50 mg Q24H PO Last administered on 02/02/19at 06:44; Admin Dose 50 MG; Start 02/02/19 at 04:30 Metoprolol Succinate (Toprol Xl) 50 mg DAILY PO Last administered on 02/02/19at 09:49; Admin Dose 50 MG; Start 02/02/19 at 09:00 Atorvastatin Calcium (Lipitor) 20 mg DAILY PO Last administered on 02/02/19at 09:49; Admin Dose 20 MG; Start 02/02/19 at 09:00 Aspirin (Halfprin) 81 mg DAILY PO Last administered on 02/02/19at 09:49; Admin Dose 81 MG; Start 02/02/19 at 09:00 Acetaminophen (Tylenol Tab) 650 mg Q4H PRN PO pain/fever Last administered on 02/02/19at 10:09; Admin Dose 650 MG; Start 02/02/19 at 04:30 Hydralazine HCl (Apresoline) 25 mg Q6H PRN PO sbp>160; Start 02/02/19 at 04:30 Morphine Sulfate (morphine) 2 mg Q2H PRN IV pain; Start 02/02/19 at 04:30 Ondansetron HCl (Zofran Inj) 4 mg Q4H PRN IV nausea; Start 02/02/19 at 04:30 Bumetanide 25 mg/ Dextrose 250 ml @ 10 mls/hr Q24H IV Last administered on 02/02/19at 12:50; Admin Dose 10 MLS/HR; Start 02/02/19 at 12:00 Potassium Chloride (Klor-Con 20) 20 meq BID PO Last administered on 02/02/19at 12:50; Admin Dose 20 MEQ; Start 02/02/19 at 11:00 Allergies: Coded Allergies: No Known Allergy (Unverified , 01/02/19) Past Surgical History Past Surgical Hx: other Social History Smoking Status: Former smoker Drug Use: other (meth) Exam/Review of Systems Vital Signs Vitals Vital Signs Date Temp Pulse Resp B/P (MAP) Pulse Ox O2 O2 Flow FiO2 Time Delivery Rate 02/02/19 89 16:42 02/02/19 97.4 20 109/81 96 Room Air 15:16 (90) Intake and Output 02/01/19 02/01/19 02/02/19 1515:00 23:00 07:00 OutputOutput Total 850 ml BalanceBalance -850 ml Exam Constitutional: alert, oriented (nad, eating lunch, no dyspnea with speaking) Head: normocephalic Respiratory: other (course bs, no wheezing) Cardiovascular: regular rate and rhythm (s1s2) Gastrointestinal: soft, non-tender, bowel sounds Extremities: edema Labs Result Diagram: 5/13/19 0149 5/13/19 0149 Results 24hrs Laboratory Tests Test 02/02/19 01:49 02/02/19 08:34 White Blood Count 8.4 Red Blood Count 4.94 Hemoglobin 13.4 L Hematocrit 41.9 L Mean Corpuscular Volume 84.8 Mean Corpuscular Hemoglobin 27.1 L Mean Corpuscular Hemoglobin Concent 32.0 Red Cell Distribution Width 16.3 H Platelet Count 196 Mean Platelet Volume 10.8 H Immature Granulocytes % 0.100 Neutrophils % 55.2 Lymphocytes % 31.5 Monocytes % 9.6 Eosinophils % 3.1 Basophils % 0.5 Nucleated Red Blood Cells % 0.0 Immature Granulocytes # 0.010 Neutrophils # 4.6 Lymphocytes # 2.7 Monocytes # 0.8 Eosinophils # 0.3 Basophils # 0.0 Nucleated Red Blood Cells # 0.0 Prothrombin Time 15.4 H Prothrombin Time Ratio 1.2 INR International Normalized Ratio 1.21 Activated Partial Thromboplast Time 26.1 Sodium Level 140 Potassium Level 4.4 Chloride Level 102 Carbon Dioxide Level 30 Anion Gap 8 Blood Urea Nitrogen 32 H Creatinine 1.72 H Est Glomerular Filtrat Rate mL/min 42 L Glucose Level 101 Calcium Level 9.2 Total Bilirubin 0.7 Direct Bilirubin 0.00 Indirect Bilirubin 0.7 Aspartate Amino Transf (AST/SGOT) 35 Alanine Aminotransferase (ALT/SGPT) 43 Alkaline Phosphatase 154 H Troponin I 0.127 *H 0.113 B-Type Natriuretic Peptide 16510 H Total Protein 6.5 Albumin 3.6 Globulin 2.90 Albumin/Globulin Ratio 1.[address] @ 109bpm, inc RBBB, non-specific st-t wav abn Medications Medications Current Medications Losartan Potassium (Cozaar) 50 mg Q24H PO Last administered on 02/02/19at 06:44; Admin Dose 50 MG; Start 02/02/19 at 04:30 Metoprolol Succinate (Toprol Xl) 50 mg DAILY PO Last administered on 02/02/19 09:49; Admin Dose 50 MG; Start 02/02/19 at 09:00 Atorvastatin Calcium (Lipitor) 20 mg DAILY PO Last administered on 02/02/19at 09:49; Admin Dose 20 MG; Start 02/02/19 at 09:00 Aspirin (Halfprin) 81 mg DAILY PO Last administered on 02/02/19at 09:49; Admin Dose 81 MG; Start 5/13/19 at 09:00 Acetaminophen (Tylenol Tab) 650 mg Q4H PRN PO pain/fever Last administered on 02/02/19at 10:09; Admin Dose 650 MG; Start 02/02/19 at 04:30 Hydralazine HCl (Apresoline) 25 mg Q6H PRN PO sbp>160; Start 02/02/19 at 04:30 Morphine Sulfate (morphine) 2 mg Q2H PRN IV pain; Start 02/02/19 at 04:30 Ondansetron HCl (Zofran Inj) 4 mg Q4H PRN IV nausea; Start 02/02/19 at 04:30 Bumetanide 25 mg/ Dextrose 250 ml @ 10 mls/hr Q24H IV Last administered on 02/02/19at 12:50; Admin Dose 10 MLS/HR; Start 02/02/19 at 12:00 Potassium Chloride (Klor-Con 20) 20 meq BID PO Last administered on 02/02/19at 12:50; Admin Dose 20 MEQ; Start 02/02/19 at 11:00 Donald Gonzales DO February 02, 2019 19:17
[2019-02-02] MEDS ORDERED: MAGNESIUM SULFATE 2 GM/50 ML 50 ML IVPB ONE (19:30)
[2019-02-03] VITALS (11 sets, daily range): BP systolic 120–137; BP diastolic 83–101; PULSE 79–89; RESP 18–20
[2019-02-03] MEDS: LOSARTAN 50 MG TAB PO SCH (05:28)
[2019-02-03] MEDS: METOPROLOL (XL) 50 MG TAB PO SCH (09:00)
[2019-02-03] MEDS: ATORVASTATIN 20 MG TAB PO SCH (09:23)
[2019-02-03] MEDS: ASPIRIN (EC) 81 MG TAB PO SCH (09:23)
[2019-02-03] MEDS: POTASSIUM CHLORIDE (SR) 20 MEQ TAB PO SCH (09:23)
[2019-02-03] MEDS ORDERED: BUMETANIDE 25 MG in DEXTROSE 5% 150 ML IV SCH (10:00)
--- NOTE | 2019-02-03 10:46 | PN ---
Date/Time of Note Date/Time of Note DATE: 02/03/19 TIME: 10:44 Subjective Doing well. No shortness of breath. Responding well to diuresis. Objective Vitals Vital Signs Date Temp Pulse Resp B/P (MAP) Pulse Ox O2 O2 Flow FiO2 Time Delivery Rate 02/03/19 83 08:41 02/03/19 98.1 18 135/90 93 07:20 (105) 02/02/19 Nasal 2.0 20:00 Cannula Intake and Output 02/02/19 02/02/19 02/03/19 1414:59 22:59 06:59 IntakeIntake Total 50 ml 1020 ml 410 ml OutputOutput Total 2000 ml BalanceBalance 50 ml -980 ml 410 ml Clear to auscultation bilaterally Regular rate and rhythm Soft nontender nondistended 3+ pitting edema Nonfocal Results Result Diagram: 02/03/1952902/03/19529 Medications Medications Current Medications Losartan Potassium (Cozaar) 50 mg Q24H PO Last administered on 02/03/19at 05:28; Admin Dose 50 MG; Start 02/02/19 at 04:30 Metoprolol Succinate (Toprol Xl) 50 mg DAILY PO Last administered on 02/02/19at 09:49; Admin Dose 50 MG; Start 02/02/19 at 09:00 Atorvastatin Calcium (Lipitor) 20 mg DAILY PO Last administered on 02/03/19at 09:23; Admin Dose 20 MG; Start 02/02/19 at 09:00 Aspirin (Halfprin) 81 mg DAILY PO Last administered on 02/03/19 09:23; Admin Dose 81 MG; Start 02/02/19 at 09:00 Acetaminophen (Tylenol Tab) 650 mg Q4H PRN PO pain/fever Last administered on 02/02/19at 10:09; Admin Dose 650 MG; Start 02/02/19 at 04:30 Hydralazine HCl (Apresoline) 25 mg Q6H PRN PO sbp>160; Start 02/02/19 at 04:30 Morphine Sulfate (morphine) 2 mg Q2H PRN IV pain; Start 02/02/19 at 04:30 Ondansetron HCl (Zofran Inj) 4 mg Q4H PRN IV nausea; Start 02/02/19 at 04:30 Bumetanide 25 mg/ Dextrose 250 ml @ 10 mls/hr Q24H IV Last administered on 02/02/19at 12:50; Admin Dose 10 MLS/HR; Start 02/02/19 at 12:00 Potassium Chloride (Klor-Con 20) 20 meq BID PO Last administered on 02/03/19at 09:23; Admin Dose 20 MEQ; Start 02/02/19 at 11:00 Bumetanide 25 mg/ Dextrose 250 ml @ 10 mls/hr Q24H IV ; Start 02/03/19 at 10:00 VTE Prophylaxis Risk score (from Nsg)>0 risk: 3 SCD applied (from Ns): No SCD contraindication: low risk/ambulating Lines/Catheters IV Catheter Type: Saline Lock Central line still needed: No Rosenthal in Place: No Assessment/Plan Assessment/Plan 48-year-old male with acute systolic CHF exacerbation Severe cardiomyopathy History of polysubstance abuse Stage III chronic kidney disease Resume Bumex drip Monitor renal function Cardiology follow-up CYRUS RICE MD February 03, 2019 10:46
--- NOTE | 2019-02-03 17:53 | CONS ---
Assessment/Plan Cardiology NYHA: II Heart Failure Type: Acute on Chronic Heart Failure Type: Both Assessment/Plan Hospital Course (Demo Recall) Acute Decompensated Systolic CHF CM EF 20% MR/TR Active meth use CHATA NSVT -pt with acute CHF decompensation -was placed on Bumex drip, lower extremity edema is improving as well as shortness of breath -Cont bb, macrel-I -maintain k>4.0 and Mg>2.0 -Unfortunately, repeat urine drug screen done yesterday is meth positive. Patient also with intermittent compliance of medications and refusing certain meds. Explained to the patient the importance of compliance with medications and cessation of illicit drugs. Consultation Date/Type/Reason Admit Date/Time February 02, 2019 at 04:25 Initial Consult Date Type of Consult Cardiology Date/Time of Note DATE: 02/03/19 TIME: 17:51 24 HR Interval Summary Free Text/Dictation Lower extremity edema is better. Shortness of breath is improved. Denies chest pain or palpitations or dizziness Exam/Review of Systems Vital Signs Vitals Vital Signs Date Temp Pulse Resp B/P (MAP) Pulse Ox O2 O2 Flow FiO2 Time Delivery Rate 02/03/19 89 16:45 02/03/19 97.5 19 124/89 98 15:33 (101) 02/02/19 Nasal 2.0 20:00 Cannula Intake and Output 02/02/19 02/02/19 02/03/19 1515:00 23:00 07:00 IntakeIntake Total 50 ml 1020 ml 940 ml OutputOutput Total 2000 ml 3200 ml BalanceBalance 50 ml -980 ml -2260 ml Exam Constitutional: alert, oriented (Eating dinner, no apparent distress) Head: normocephalic Respiratory: other (Coarse breath sounds bilaterally, no wheezing) Cardiovascular: regular rate and rhythm (S1-S2 heard) Gastrointestinal: soft, non-tender, bowel sounds Extremities: edema Labs Result Diagram: 02/03/19 0530 02/03/19 0530 Results 24hrs Laboratory Tests Test 02/02/19 19:54 02/02/19 20:30 02/03/19 05:30 Sodium Level 140 143 Potassium Level 3.7 3.6 Chloride Level 98 100 Carbon Dioxide Level 33 H 33 H Anion Gap 9 10 Blood Urea Nitrogen 38 H 41 H Creatinine 1.92 H 1.86 H Est Glomerular Filtrat Rate mL/min 37 L 39 L Glucose Level 153 83 # Calcium Level 9.5 9.4 Magnesium Level 1.8 Urine Opiates Screen Negative Urine Barbiturates Negative Urine Amphetamines Screen Positive Urine Benzodiazepines Screen Negative Urine Cocaine Screen Negative Urine Cannabinoids Negative White Blood Count 9.8 Red Blood Count 5.08 Hemoglobin 13.9 L Hematocrit 43.5 Mean Corpuscular Volume 85.6 Mean Corpuscular Hemoglobin 27.4 L Mean Corpuscular Hemoglobin Concent 32.0 Red Cell Distribution Width 16.5 H Platelet Count 205 Mean Platelet Volume 11.3 H Immature Granulocytes % 0.300 Neutrophils % 53.7 Lymphocytes % 33.6 Monocytes % 8.6 Eosinophils % 3.2 Basophils % 0.6 Nucleated Red Blood Cells % 0.0 Immature Granulocytes # 0.030 Neutrophils # 5.3 Lymphocytes # 3.3 H Monocytes # 0.8 Eosinophils # 0.3 Basophils # 0.1 Nucleated Red Blood Cells # 0.0 Medications Medications Current Medications Losartan Potassium (Cozaar) 50 mg Q24H PO Last administered on 02/03/19at 05:28; Admin Dose 50 MG; Start 02/02/19 at 04:30 Metoprolol Succinate (Toprol Xl) 50 mg DAILY PO Last administered on 02/02/19at 09:49; Admin Dose 50 MG; Start 02/02/19 at 09:00 Atorvastatin Calcium (Lipitor) 20 mg DAILY PO Last administered on 02/03/19at 09:23; Admin Dose 20 MG; Start 02/02/19 at 09:00 Aspirin (Halfprin) 81 mg DAILY PO Last administered on 02/03/19at 09:23; Admin Dose 81 MG; Start 02/02/19 at 09:00 Acetaminophen (Tylenol Tab) 650 mg Q4H PRN PO pain/fever Last administered on 02/02/19at 10:09; Admin Dose 650 MG; Start 02/02/19 at 04:30 Hydralazine HCl (Apresoline) 25 mg Q6H PRN PO sbp>160; Start 02/02/19 at 04:30 Morphine Sulfate (morphine) 2 mg Q2H PRN IV pain; Start 02/02/19 at 04:30 Ondansetron HCl (Zofran Inj) 4 mg Q4H PRN IV nausea; Start 02/02/19 at 04:30 Potassium Chloride (Klor-Con 20) 20 meq BID PO Last administered on 02/03/19at 09:23; Admin Dose 20 MEQ; Start 02/02/19 at 11:00 Bumetanide 25 mg/ Dextrose 250 ml @ 10 mls/hr Q24H IV Last administered on 02/03/19at 12:25; Admin Dose 10 MLS/HR; Start 02/03/19 at 10:00 Donald Gonzales DO February 03, 2019 17:53
[2019-02-03] MEDS ORDERED: MAGNESIUM SULFATE 3 GM in DEXTROSE 5% 100 ML IVPB ONE (19:30)
--- NOTE | 2019-02-06 14:08 | DS ---
DATE OF ADMISSION: 02/02/2019 DATE OF DISCHARGE: 02/03/2019 DISCHARGE DIAGNOSES: 1. Acute decompensated systolic congestive heart failure exacerbation. 2. Severe cardiomyopathy with ejection fraction of 20%. 3. Mitral regurgitation. 4. Tricuspid regurgitation. 5. History of polysubstance abuse. 6. Stage III chronic kidney disease. HOSPITAL COURSE: A 48-year-old with multiple noted medical problems including severe cardiomyopathy, presented with complaint of shortness of breath and increasing bilateral lower extremity edema. The patient was diagnosed with acute decompensated systolic congestive heart failure exacerbation. He w as started on IV Bumex with good diuretic response. He was seen in consultation by Dr. Gonzales. The patient however eloped on day 2 of admission prior to getting adequate treatment. Case management wa s notified. He will be followed as outpatient. Dictated By: CYRUS WILLAMS/NTS Conf#: [id number] DID#: [id number] CC: SETH GONZALES DO; BRANDYN AREVALO MD;*[facility]*
== END 2019-02-03 19:50 | disposition left against medical advice (07) | DRG 291 ==
LOC: E/R 23:47 → 6WM 02-02 04:25 → CANRESERV 02-02 04:33
PROVIDERS: ADMIT Legal Medicine; ATTEND Legal Medicine
DX: I13.0 Hypertensive heart and chronic kidney disease with heart failure and stage 1 through stage 4 chronic kidney disease, or unspecified chronic kidney disease (principal); I50.23 Acute on chronic systolic (congestive) heart failure; N17.9 Acute kidney failure, unspecified; I47.1 Supraventricular tachycardia; I42.9 Cardiomyopathy, unspecified; Z86.73 Personal history of transient ischemic attack (TIA), and cerebral infarction without residual deficits; Z87.891 Personal history of nicotine dependence; I08.1 Rheumatic disorders of both mitral and tricuspid valves; N18.3 Chronic kidney disease, stage 3 (moderate); F15.90 Other stimulant use, unspecified, uncomplicated
CPT/HCPCS: 36415; 71045; 80048; 80053; 80307; 83735; 83880; 84484; 85025; 85610; 85730; 93005; 96374; J3475; J7070